=== PATIENT | male | born 1975 | race Caucasian/White ===

== ENCOUNTER 2021-03-25 10:45 | Inpatient (IN) | payer SELFPAY ==
[~2021-03-25 10:45] MED LIST: Iopamidol-370 76% 500 ML 1 ML ONE
[2021-03-25 11:27] LABS: #Lymphocytes 1.7 thou/uL (1.20-3.40); #Monocytes 1.1 thou/uL (0.11-0.59); %Basophils 0.2 % (0.0-1.0); %Eosinophils 0.3 % (0.0-10.0); %Lymphocytes 12.1 % (21.0-51.0); %Monocytes 7.6 % (0.0-10.0); %Neutrophils 79.8 % (42.0-75.0); Hemoglobin 14.9 g/dL (14.0-18.0); Mean Corpuscular HGB CONC 32.6 g/dL (32.0-36.0); Mean Corpuscular Hemoglobin 30.3 pg (27.0-31.0); Mean Platelet Volume 7.1 fL (7.4-10.4); Platelet Count 574 thou/uL (130-400); Red Blood Cell (RBC) Count 4.91 mill/uL (4.70-6.10); White Blood Cell (WBC) Count 13.8 thou/uL (4.8-10.8)
[2021-03-25 11:48] LABS: ALT (SGPT) 155 U/L (8-55); AST (SGOT) 95 U/L (5-34); Albumin 3.8 g/dL (3.5-5.0); Alkaline Phosphatase 184 U/L (40-110); Anion Gap 15 mmol/L (10-20); BUN (Urea Nitrogen) 15 mg/dL (8.9-20.6); Bilirubin, Total 0.7 mg/dL (0.2-1.2); Calc. Creatinine Clearance 0 mL/min (70-130); Calcium 9.3 mg/dL (7.8-10.44); Carbon Dioxide 25 mmol/L (22-29); Chloride 100 mmol/L (98-107); Glucose 126 mg/dL (70-105); Potassium 3.8 mmol/L (3.5-5.1); Protein, Total 7.8 g/dL (6.0-8.3); Sodium 136 mmol/L (136-145)
[2021-03-25] MEDS ORDERED: Dexamethasone 10 MG/ML VIAL ONE (12:12)
[2021-03-25 13:34] LABS: Bilirubin Negative (Negative); Blood, Urine Negative (Negative); Glucose, Urine (Dipstick) Negative (Negative); Ketone, Urine Negative (Negative); Leukocyte Negative (Negative); Nitrite Negative (Negative); Protein, Urine (Dipstick) Trace mg/dL (Neg-Trace); Urobilinogen 0.2 mg/dL (Less than 2)
[2021-03-25 13:40] LABS: Clarity Clear (Clear)
[2021-03-25 13:43] LABS: RBC/HPF None Seen HPF (0-3); Squamous Epithelial None Seen HPF (0-3); WBC/HPF 0-3 HPF (0-3)
[2021-03-25 13:44] LABS: Bacteria/HPF Rare-Few HPF (None Seen)
[2021-03-25] MEDS ORDERED: Ondansetron ODT 4 MG TAB PO PRN (14:34)
[2021-03-25 15:10] LABS: Lactic Acid 1.3 mmol/L (0.5-2.2)
[2021-03-25 17:12] VITALS: BMI 26.8
[2021-03-25] MEDS: Benzonatate 100 MG CAP PO PRN (17:44)
[2021-03-25] MEDS: cefTRIAXone\\ROCEPHIN 1 GM in Sodium Chloride 0.9% 100 ML IVPB SCH (18:30)
[2021-03-25] MEDS: Azithromycin 500 MG in Sodium Chloride 0.9% 250 ML 250 ML IVPB SCH (21:32)
[2021-03-25] MEDS: Melatonin 3 MG TAB PO SCH (21:32)
[2021-03-26 06:20] LABS: #Lymphocytes 2.2 thou/uL (1.20-3.40); #Monocytes 1.3 thou/uL (0.11-0.59); #Neutrophils 8.4 thou/uL (1.40-6.50); %Basophils 0.2 % (0.0-1.0); %Eosinophils 0.4 % (0.0-10.0); %Monocytes 11.2 % (0.0-10.0); %Neutrophils 70.2 % (42.0-75.0); Hemoglobin 13.5 g/dL (14.0-18.0); Mean Corpuscular HGB CONC 32.5 g/dL (32.0-36.0); Mean Corpuscular Volume 92.2 fL (78.0-98.0); Mean Platelet Volume 6.9 fL (7.4-10.4); Platelet Count 535 thou/uL (130-400); White Blood Cell (WBC) Count 11.9 thou/uL (4.8-10.8)
[2021-03-26 06:40] LABS: ALT (SGPT) 138 U/L (8-55); AST (SGOT) 50 U/L (5-34); Albumin 3.4 g/dL (3.5-5.0); Alkaline Phosphatase 160 U/L (40-110); Anion Gap 14 mmol/L (10-20); BUN (Urea Nitrogen) 11 mg/dL (8.9-20.6); Bilirubin, Total 0.4 mg/dL (0.2-1.2); Calc. Creatinine Clearance 165 mL/min (70-130); Calcium 8.5 mg/dL (7.8-10.44); Carbon Dioxide 24 mmol/L (22-29); Chloride 101 mmol/L (98-107); Globulin 3.4 g/dL (2.4-3.5); Glucose 94 mg/dL (70-105); Potassium 3.9 mmol/L (3.5-5.1); Protein, Total 6.8 g/dL (6.0-8.3); Sodium 135 mmol/L (136-145)
[2021-03-26] MEDS: Zinc Sulfate 220 MG CAP PO SCH (07:49)
[2021-03-26] MEDS: Enoxaparin Sodium 40 MG/0.4 ML SYRINGE SC SCH (07:49)
[2021-03-26] MEDS: Ascorbic Acid 500 mg Chewable Tablet PO SCH (07:49)
[2021-03-26] MEDS: Benzonatate 100 MG CAP PO PRN ×2 (07:50→20:32)
[2021-03-26] MEDS: Cholecalciferol 1,000 UNITS (25 MCG) TAB PO SCH (07:50)
[2021-03-26] MEDS: Azithromycin 500 MG in Sodium Chloride 0.9% 250 ML 250 ML IVPB SCH (16:06)
[2021-03-26] MEDS: cefTRIAXone\\ROCEPHIN 1 GM in Sodium Chloride 0.9% 100 ML IVPB SCH (16:06)
[2021-03-26] MEDS: Melatonin 3 MG TAB PO SCH (20:32)
[2021-03-26] MEDS: Guaifenesin DM 100-10/5 ML UDCUP PO PRN (20:32)
[2021-03-27] MEDS: Enoxaparin Sodium 40 MG/0.4 ML SYRINGE SC SCH ×2 (07:49→20:34)
[2021-03-27] MEDS: Cholecalciferol 1,000 UNITS (25 MCG) TAB PO SCH (07:49)
[2021-03-27] MEDS: Zinc Sulfate 220 MG CAP PO SCH (07:49)
[2021-03-27] MEDS: Guaifenesin DM 100-10/5 ML UDCUP PO PRN ×2 (07:49→20:33)
[2021-03-27] MEDS: Ascorbic Acid 500 mg Chewable Tablet PO SCH (07:50)
[2021-03-27 08:04] LABS: Hemoglobin 14.2 g/dL (14.0-18.0); Mean Corpuscular HGB CONC 34.4 g/dL (32.0-36.0); Mean Corpuscular Hemoglobin 32.1 pg (27.0-31.0); Mean Corpuscular Volume 93.4 fL (78.0-98.0); Mean Platelet Volume 6.8 fL (7.4-10.4); Platelet Count 588 thou/uL (130-400); RBC Distribution Width 11.1 % (11.5-14.5); Red Blood Cell (RBC) Count 4.42 mill/uL (4.70-6.10); White Blood Cell (WBC) Count 16.3 thou/uL (4.8-10.8)
[2021-03-27 08:24] LABS: ALT (SGPT) 107 U/L (8-55); AST (SGOT) 31 U/L (5-34); Albumin 3.3 g/dL (3.5-5.0); Alkaline Phosphatase 154 U/L (40-110); Anion Gap 14 mmol/L (10-20); BUN (Urea Nitrogen) 10 mg/dL (8.9-20.6); Bilirubin, Total 0.6 mg/dL (0.2-1.2); Calc. Creatinine Clearance 162 mL/min (70-130); Calcium 8.7 mg/dL (7.8-10.44); Carbon Dioxide 24 mmol/L (22-29); Chloride 101 mmol/L (98-107); Globulin 3.7 g/dL (2.4-3.5); Glucose 94 mg/dL (70-105); Sodium 135 mmol/L (136-145)
[2021-03-27 10:00] LABS: Band 1 % (5-11); Eosinophils 1 % (0-10); Lymphocytes 11 % (21-51); MDiff Complete? YES; Metamyelocyte 1 % (0-0); Monocytes 13 % (0-10); Myelocyte 2 % (0-0); Neutrophil 66 % (42-75); Platelet Morphology Comment Appears Increased; Polychromasia SLIGHT = 2-3 cells (100X) (0-2/hpf); Reactive Lymphocytes 5 % (0-10)
[2021-03-27] MEDS ORDERED: Calcium Carbonate 500 MG ChewTAB PO PRN (15:38)
[2021-03-27] MEDS: Azithromycin 500 MG in Sodium Chloride 0.9% 250 ML 250 ML IVPB SCH (16:02)
[2021-03-27] MEDS: cefTRIAXone\\ROCEPHIN 1 GM in Sodium Chloride 0.9% 100 ML IVPB SCH (16:03)
[2021-03-27] MEDS ORDERED: methylPREDNISolone Sod Succ/PF 125 MG/2 ML VIAL IVP SCH (17:30)
[2021-03-27] MEDS ORDERED: Ivermectin 3 MG TAB PO SCH (17:30)
[2021-03-27] MEDS: Albuterol Sulfate 2.5 mg/3 ml Neb NEB SCH (18:24)
[2021-03-27] MEDS: methylPREDNISolone Sod Succ/PF 125 MG/2 ML VIAL IVP SCH (20:33)
[2021-03-27] MEDS: Melatonin 3 MG TAB PO SCH (20:34)
[2021-03-27] MEDS: Colchicine 0.6 MG TAB PO SCH (20:34)
[2021-03-27] MEDS: Acetaminophen 325 MG TAB PO PRN (21:12)
[2021-03-28] MEDS: Albuterol Sulfate 2.5 mg/3 ml Neb NEB SCH ×2 (01:05→06:51)
[2021-03-28 06:42] LABS: #Eosinphils 0.1 thou/uL (0.0-0.7); #Lymphocytes 1.5 thou/uL (1.20-3.40); #Monocytes 0.3 thou/uL (0.11-0.59); #Neutrophils 12.2 thou/uL (1.40-6.50); %Basophils 0.2 % (0.0-1.0); %Eosinophils 0.5 % (0.0-10.0); %Lymphocytes 10.7 % (21.0-51.0); %Neutrophils 86.5 % (42.0-75.0); Hemoglobin 14.8 g/dL (14.0-18.0); Mean Corpuscular HGB CONC 34.3 g/dL (32.0-36.0); Mean Corpuscular Hemoglobin 31.7 pg (27.0-31.0); Mean Corpuscular Volume 92.5 fL (78.0-98.0); Mean Platelet Volume 6.8 fL (7.4-10.4); Platelet Count 638 thou/uL (130-400); Red Blood Cell (RBC) Count 4.67 mill/uL (4.70-6.10); White Blood Cell (WBC) Count 14.1 thou/uL (4.8-10.8)
[2021-03-28] MEDS: Enoxaparin Sodium 40 MG/0.4 ML SYRINGE SC SCH ×2 (09:12→20:38)
[2021-03-28] MEDS: Cholecalciferol 1,000 UNITS (25 MCG) TAB PO SCH (09:12)
[2021-03-28] MEDS: Colchicine 0.6 MG TAB PO SCH ×2 (09:13→20:39)
[2021-03-28] MEDS: Zinc Sulfate 220 MG CAP PO SCH (09:13)
[2021-03-28] MEDS: methylPREDNISolone Sod Succ/PF 125 MG/2 ML VIAL IVP SCH ×2 (09:13→20:38)
[2021-03-28] MEDS: Ascorbic Acid 500 mg Chewable Tablet PO SCH (09:13)
[2021-03-28] MEDS: Ivermectin 3 MG TAB PO SCH (09:17)
[2021-03-28] MEDS ORDERED: Diazepam 5 MG TAB PO PRN (10:54)
[2021-03-28] MEDS ORDERED: Thiamine HCl 200 MG/2 ML VIAL IM SCH (11:00)
[2021-03-28] MEDS: Benzonatate 100 MG CAP PO PRN ×2 (11:27→20:39)
[2021-03-28] MEDS: Guaifenesin DM 100-10/5 ML UDCUP PO PRN (11:27)
[2021-03-28] MEDS: Acetaminophen 325 MG TAB PO PRN (11:28)
[2021-03-28] MEDS: Albuterol 200 PUFF (6.7GM INHALER) INH SCH ×2 (14:33→20:00)
[2021-03-28] MEDS: Azithromycin 500 MG in Sodium Chloride 0.9% 250 ML 250 ML IVPB SCH (16:22)
[2021-03-28] MEDS: cefTRIAXone\\ROCEPHIN 1 GM in Sodium Chloride 0.9% 100 ML IVPB SCH (16:22)
[2021-03-28] MEDS: Melatonin 3 MG TAB PO SCH (20:39)
[2021-03-29] MEDS: Albuterol 200 PUFF (6.7GM INHALER) INH SCH ×4 (01:05→18:18)
[2021-03-29] MEDS ORDERED: Diazepam 5 MG TAB PO PRN (04:00)
[2021-03-29 06:47] LABS: Hemoglobin 13.6 g/dL (14.0-18.0); Mean Corpuscular HGB CONC 33.4 g/dL (32.0-36.0); Mean Corpuscular Hemoglobin 30.9 pg (27.0-31.0); Mean Corpuscular Volume 92.3 fL (78.0-98.0); Mean Platelet Volume 6.8 fL (7.4-10.4); Platelet Count 638 thou/uL (130-400); RBC Distribution Width 10.9 % (11.5-14.5); White Blood Cell (WBC) Count 24.5 thou/uL (4.8-10.8)
[2021-03-29] MEDS: Colchicine 0.6 MG TAB PO SCH ×2 (08:03→20:43)
[2021-03-29] MEDS: Multivitamin W/ Minerals 1 TAB PO SCH (08:03)
[2021-03-29] MEDS: Magnesium Oxide 400 MG TAB PO SCH (08:03)
[2021-03-29] MEDS: Enoxaparin Sodium 40 MG/0.4 ML SYRINGE SC SCH ×2 (08:03→20:43)
[2021-03-29] MEDS: methylPREDNISolone Sod Succ/PF 125 MG/2 ML VIAL IVP SCH ×2 (08:04→20:46)
[2021-03-29] MEDS: Benzonatate 100 MG CAP PO PRN ×2 (08:04→16:17)
[2021-03-29] MEDS: Cholecalciferol 1,000 UNITS (25 MCG) TAB PO SCH (08:04)
[2021-03-29] MEDS: Zinc Sulfate 220 MG CAP PO SCH (08:04)
[2021-03-29] MEDS: Folic Acid 1 MG TAB PO SCH (08:04)
[2021-03-29] MEDS: Thiamine 100 MG TAB PO SCH (08:04)
[2021-03-29] MEDS: Acetaminophen 325 MG TAB PO PRN (08:04)
[2021-03-29 08:09] LABS: Band 1 % (5-11); Lymphocytes 7 % (21-51); MDiff Complete? YES; Monocytes 2 % (0-10); Neutrophil 90 % (42-75); Platelet Morphology Comment Appears Increased; Polychromasia SLIGHT = 2-3 cells (100X) (0-2/hpf)
[2021-03-29] MEDS ORDERED: SODIUM CHLORIDE 0.9% IVPB SCH (09:00)
[2021-03-29] MEDS ORDERED: Cholecalciferol (Vitamin D3) 400 UNITS TAB PO SCH (09:00)
[2021-03-29] MEDS ORDERED: ASCORBIC ACID IVPB SCH (09:00)
[2021-03-29] MEDS: Ascorbic Acid 500 mg Chewable Tablet PO SCH (10:11)
[2021-03-29] MEDS: Ivermectin 3 MG TAB PO SCH (10:11)
[2021-03-29] MEDS: Azithromycin 500 MG in Sodium Chloride 0.9% 250 ML 250 ML IVPB SCH (16:17)
[2021-03-29] MEDS: Guaifenesin DM 100-10/5 ML UDCUP PO PRN ×2 (16:17→20:46)
[2021-03-29] MEDS: cefTRIAXone\\ROCEPHIN 1 GM in Sodium Chloride 0.9% 100 ML IVPB SCH (18:18)
[2021-03-29] MEDS: Melatonin 3 MG TAB PO SCH (20:43)
[2021-03-30] MEDS: Albuterol 200 PUFF (6.7GM INHALER) INH SCH ×4 (01:44→18:24)
[2021-03-30] MEDS: Benzonatate 100 MG CAP PO PRN (09:16)
[2021-03-30] MEDS: Ascorbic Acid 500 mg Chewable Tablet PO SCH (09:16)
[2021-03-30] MEDS: Thiamine 100 MG TAB PO SCH (09:16)
[2021-03-30] MEDS: Zinc Sulfate 220 MG CAP PO SCH (09:16)
[2021-03-30] MEDS: Cholecalciferol 1,000 UNITS (25 MCG) TAB PO SCH (09:17)
[2021-03-30] MEDS: Colchicine 0.6 MG TAB PO SCH ×2 (09:17→20:54)
[2021-03-30] MEDS: Multivitamin W/ Minerals 1 TAB PO SCH (09:17)
[2021-03-30] MEDS: Folic Acid 1 MG TAB PO SCH (09:17)
[2021-03-30] MEDS: Magnesium Oxide 400 MG TAB PO SCH (09:17)
[2021-03-30] MEDS: Enoxaparin Sodium 40 MG/0.4 ML SYRINGE SC SCH ×2 (09:17→20:54)
[2021-03-30] MEDS: methylPREDNISolone Sod Succ/PF 125 MG/2 ML VIAL IVP SCH (09:20)
[2021-03-30] MEDS: Ivermectin 3 MG TAB PO SCH (09:24)
[2021-03-30] MEDS: Melatonin 3 MG TAB PO SCH (20:56)
[2021-03-31] MEDS: Albuterol 200 PUFF (6.7GM INHALER) INH SCH ×4 (01:41→18:15)
[2021-03-31 06:07] LABS: #Eosinphils 0.1 thou/uL (0.0-0.7); #Monocytes 1.6 thou/uL (0.11-0.59); #Neutrophils 11.8 thou/uL (1.40-6.50); %Basophils 0.2 % (0.0-1.0); %Eosinophils 0.7 % (0.0-10.0); %Lymphocytes 22.8 % (21.0-51.0); %Monocytes 8.9 % (0.0-10.0); %Neutrophils 67.4 % (42.0-75.0); Mean Corpuscular HGB CONC 34.6 g/dL (32.0-36.0); Mean Corpuscular Hemoglobin 32.4 pg (27.0-31.0); Mean Corpuscular Volume 93.6 fL (78.0-98.0); Mean Platelet Volume 6.8 fL (7.4-10.4); Platelet Count 579 thou/uL (130-400); RBC Distribution Width 11.2 % (11.5-14.5); Red Blood Cell (RBC) Count 4.01 mill/uL (4.70-6.10); White Blood Cell (WBC) Count 17.4 thou/uL (4.8-10.8)
[2021-03-31 06:26] LABS: Anion Gap 12 mmol/L (10-20); BUN (Urea Nitrogen) 17 mg/dL (8.9-20.6); CRP (Inflammatory) 0.65 mg/dL (= or < 0.5); Calc. Creatinine Clearance 177 mL/min (70-130); Calcium 8.3 mg/dL (7.8-10.44); Carbon Dioxide 24 mmol/L (22-29); Chloride 106 mmol/L (98-107); Glucose 95 mg/dL (70-105); Potassium 3.8 mmol/L (3.5-5.1); Sodium 138 mmol/L (136-145)
[2021-03-31] MEDS: Cholecalciferol 1,000 UNITS (25 MCG) TAB PO SCH (08:37)
[2021-03-31] MEDS: Magnesium Oxide 400 MG TAB PO SCH (08:37)
[2021-03-31] MEDS: Benzonatate 100 MG CAP PO PRN (08:37)
[2021-03-31] MEDS: Enoxaparin Sodium 40 MG/0.4 ML SYRINGE SC SCH ×2 (08:37→21:28)
[2021-03-31] MEDS: Multivitamin W/ Minerals 1 TAB PO SCH (08:37)
[2021-03-31] MEDS: Ascorbic Acid 500 mg Chewable Tablet PO SCH (08:37)
[2021-03-31] MEDS: Colchicine 0.6 MG TAB PO SCH ×2 (08:37→21:28)
[2021-03-31] MEDS: Folic Acid 1 MG TAB PO SCH (08:37)
[2021-03-31] MEDS: methylPREDNISolone Sod Succ/PF 125 MG/2 ML VIAL IVP SCH (08:38)
[2021-03-31] MEDS: Thiamine 100 MG TAB PO SCH (08:38)
[2021-03-31] MEDS: Zinc Sulfate 220 MG CAP PO SCH (08:38)
[2021-03-31] MEDS: Ivermectin 3 MG TAB PO SCH (08:40)
[2021-03-31] MEDS: Melatonin 3 MG TAB PO SCH (21:28)
[2021-04-01] MEDS: Albuterol 200 PUFF (6.7GM INHALER) INH SCH ×4 (01:45→18:18)
[2021-04-01 05:45] LABS: #Basophils 0.1 thou/uL (0.0-0.2); #Eosinphils 0.1 thou/uL (0.0-0.7); #Lymphocytes 4.5 thou/uL (1.20-3.40); #Monocytes 1.5 thou/uL (0.11-0.59); #Neutrophils 12.2 thou/uL (1.40-6.50); %Basophils 0.3 % (0.0-1.0); %Eosinophils 0.7 % (0.0-10.0); %Lymphocytes 24.3 % (21.0-51.0); %Monocytes 8.3 % (0.0-10.0); %Neutrophils 66.4 % (42.0-75.0); Hemoglobin 13.2 g/dL (14.0-18.0); Mean Corpuscular HGB CONC 33.1 g/dL (32.0-36.0); Mean Corpuscular Volume 93.7 fL (78.0-98.0); Mean Platelet Volume 6.6 fL (7.4-10.4); Platelet Count 602 thou/uL (130-400); RBC Distribution Width 11.3 % (11.5-14.5); Red Blood Cell (RBC) Count 4.26 mill/uL (4.70-6.10); White Blood Cell (WBC) Count 18.4 thou/uL (4.8-10.8)
[2021-04-01] MEDS: Benzonatate 100 MG CAP PO PRN ×2 (08:22→20:45)
[2021-04-01] MEDS: Ascorbic Acid 500 mg Chewable Tablet PO SCH (08:22)
[2021-04-01] MEDS: Ivermectin 3 MG TAB PO SCH (08:22)
[2021-04-01] MEDS: Folic Acid 1 MG TAB PO SCH (08:23)
[2021-04-01] MEDS: Magnesium Oxide 400 MG TAB PO SCH (08:23)
[2021-04-01] MEDS: Colchicine 0.6 MG TAB PO SCH ×2 (08:23→20:43)
[2021-04-01] MEDS: Thiamine 100 MG TAB PO SCH (08:23)
[2021-04-01] MEDS: Zinc Sulfate 220 MG CAP PO SCH (08:23)
[2021-04-01] MEDS: Cholecalciferol 1,000 UNITS (25 MCG) TAB PO SCH (08:23)
[2021-04-01] MEDS: Multivitamin W/ Minerals 1 TAB PO SCH (08:23)
[2021-04-01] MEDS: methylPREDNISolone Sod Succ/PF 125 MG/2 ML VIAL IVP SCH (08:24)
[2021-04-01] MEDS: Enoxaparin Sodium 40 MG/0.4 ML SYRINGE SC SCH ×2 (08:24→20:43)
[2021-04-01] MEDS: Melatonin 3 MG TAB PO SCH (20:43)
[2021-04-02] MEDS: Albuterol 200 PUFF (6.7GM INHALER) INH SCH ×3 (01:39→12:45)
[2021-04-02] MEDS: Ascorbic Acid 500 mg Chewable Tablet PO SCH (08:34)
[2021-04-02] MEDS: Colchicine 0.6 MG TAB PO SCH (08:34)
[2021-04-02] MEDS: Thiamine 100 MG TAB PO SCH (08:34)
[2021-04-02] MEDS: Folic Acid 1 MG TAB PO SCH (08:34)
[2021-04-02] MEDS: Cholecalciferol 1,000 UNITS (25 MCG) TAB PO SCH (08:34)
[2021-04-02] MEDS: Zinc Sulfate 220 MG CAP PO SCH (08:34)
[2021-04-02] MEDS: Magnesium Oxide 400 MG TAB PO SCH (08:34)
[2021-04-02] MEDS: Multivitamin W/ Minerals 1 TAB PO SCH (08:34)
[2021-04-02] MEDS: Enoxaparin Sodium 40 MG/0.4 ML SYRINGE SC SCH (08:35)
[2021-04-02] MEDS: methylPREDNISolone Sod Succ/PF 125 MG/2 ML VIAL IVP SCH (08:35)
[2021-04-02] MEDS: Ivermectin 3 MG TAB PO SCH (10:27)
[2021-04-02 16:22] VITALS: BP 108/77; TEMP 98.6
== END 2021-04-02 16:48 | disposition home or self-care (01) | DRG 871 ==
LOC: ERS 10:45 → T4-B 14:37
PROVIDERS: ADMIT Family Medicine; ATTEND Family Medicine
PROC: 8E0ZXY6 Isolation (ICD-10-PCS; principal; 2021-03-25)
DX: A41.89 Other specified sepsis (principal); U07.1 COVID-19; J96.01 Acute respiratory failure with hypoxia; J12.82 Pneumonia due to coronavirus disease 2019; F17.210 Nicotine dependence, cigarettes, uncomplicated; J45.909 Unspecified asthma, uncomplicated; F12.10 Cannabis abuse, uncomplicated; F41.9 Anxiety disorder, unspecified; F10.10 Alcohol abuse, uncomplicated; F90.9 Attention-deficit hyperactivity disorder, unspecified type; Z79.899 Other long term (current) drug therapy
CPT/HCPCS: 36415; 71045; 71275; 80048; 80053; 81003; 82728; 83605; 84484; 85025; 85379; 86140; 87040; 87070; 87205; 93005; 96374; J0456; J0696; J1100; J1650; J2930; J3411; J3475; J3490; J7050; Q9967